=== PATIENT | male | born 2000 | race Caucasian/White ===

== ENCOUNTER 2022-05-16 20:25 | Emergency (ER) | payer OTHER, SELFPAY ==
[2022-05-16 20:56] VITALS: BP 100/64; PULSE 89; TEMP 36.8; O2SAT 96; BMI 24.3
--- NOTE | 2022-05-16 21:53 | ED_ITS ---
HPI - Psych General Chief Complaint: Psychiatric Problem/Disorder Stated Complaint: Confusion,Depression Time Seen by Provider: 05/16/22 20:56 History of Present Illness HPI Narrative: 21-year-old young man presenting to the emergency department with concern of not knowing what to do. He feels he needs ?upper level psychiatric facility? to try to break this cycle has become some weeks especially this week more depressed but particularly describes a deep sense of apathy. Does have a long psychiatric history and does receive regular counseling. Missed last week's therapy session which is done virtual. Last size psychiatrist virtually about a month ago possibly. Some medication adjustments decreasing Abilify seeing an SSRI. Does have diagnosis of depression anxiety he thinks some OCD tendencies also autism spectrum and history of intrusive thoughts. He has been having more of these intrusive thoughts about cracking his head against something or is falling out of bed and cracking his neck. He does not have thoughts of self-harm just suicide like this. Stressors include that he is pretty sure he is now failing of school. He is from [facility] male figure living with his mother would not be very forgiving apparently of mental health difficulties or beatrice ncial challenges that he might incur and so he has not been inclined to discuss what is going on with him. He has not brushed teeth in about a month but he has been using mouthwash. He describes himself as polyamorous; has 3 partners but recently couple of them stopped calling abruptly. He said he did not cry about it he was just flat somehow. He has felt like this in the past just not that th is bad. Has not use substances recently but on occasion does and alcohol. Sleep has been poor. He is a [employer] in [place] majoring in philosophy but maybe adding Psychiatry as well. Related Data Home Medications Medication Instructions Recorded Confirmed clonidine HCl 0.1 mg mg PO 05/16/22 tablet,extended release,12 hr escitalopram oxalate 20 mg tablet mg 05/16/22 estradiol 2 mg tablet mg 05/16/22 spironolactone 100 mg tablet mg 05/16/22 Allergies Allergy/AdvReac Type Severity Reaction Status Date / Time No Known Drug Allergies Allergy Verified 05/16/22 21:03 Review of Systems Status of ROS: Reports: 10 or more systems reviewed and unremarkable except as noted in History and below PFSH PFS Social History Smoking Status: Former smoker Do you use any of these nicotine containing products: None Second hand tobacco smoke exposure: No How often do you have a drink containing alcohol: 2-3 times a week How many standard drinks containing alcohol do you have on a typical day: 1 or 2 How often do you have six or more drinks on one occasion: Never AUDIT-C Alcohol total score: 3 Non-prescribed substance use: marijuana (any form) Exam Narrative: Exam Narrative: Pleasant. Talkative, easily conversant speaking fluidly. More blunted or flatter affect. Cranial nerves 2-12 intact. Mood is described as depressed. Affect appropriate. Breathing easily. In no particular distress. Has a big head of hair. No indication of self-harm on his person. Oropharynx is WNL. Actually does not look to be particularly unkempt. Cardiovascular with regular rate and rhythm Moving all extremities without difficulty. Well-perfused. Const: Vital Signs, click to edit/add: Vital Signs - 24 hr 05/16/22 20:56 05/17/22 02:26 Temperature 98.3 F 98.3 F Pulse Rate [Left P ulse Oximeter] 89 78 Respiratory Rate 18 Blood Pressure [Ri ght Upper Arm] 100/64 108/78 Pulse Oximetry 96 96 Oxygen Delivery Me thod Room Air Room Air Documenting provider has reviewed patient's vital signs: yes Course Course Hospital Course: I suggested it would be a good idea to stay ahead of these matters particularly those involving studies and talked to the [facility] sooner than later; that many other students go through these kinds of things as well. Reevaluation(s) Reevaluation #2: After talking and this time here says he feels better, like there is a path forward Consultations Consultation #1: Did ask for [facility] to consult. Merissa apparently is familiar with [facility]. She has managed to arrange for a day program locally which was helpful for [facility] in the past. Particularly helpful with organization. Vital Signs Vital signs: Initial Vital Signs Temperature 98.3 F 05/16/22 20:56 Temperature Source Temporal Artery Scan 05/16/22 20:56 Pulse Rate 89 05/16/22 20:56 Blood Pressure 100/64 05/16/22 20:56 Blood Pressure Mean 76 05/16/22 20:56 Blood Pressure Position Sitting 05/16/22 20:56 Pulse Oximetry 96 05/16/22 20:56 Oxygen Delivery Method 05/16/22 20:56 Vital Signs Temperature 98.3 F 05/16/22 20:56 Pulse Rate 89 05/16/22 20:56 Blood Pressure 100/64 05/16/22 20:56 Pulse Oximetry 96 05/16/22 20:56 Oxygen Delivery Method 05/16/22 20:56 Temperature 97.9 F 05/17/22 05:57 Pulse Rate 81 05/17/22 05:57 Respiratory Rate 18 05/17/22 05:57 Blood Pressure 110/80 05/17/22 05:57 Pulse Oximetry 96 05/17/22 05:56 Oxygen Delivery Method 05/17/22 05:56 MDM - Psych MDM Narrative Medical decision making narrative: Passive suicidal ideations seemed to be more consistent with intrusive thoughts. No active plan. Lab Data Attestation: I reviewed the patient's lab results. Labs: Lab Results 05/16/22 05/16/22 05/16/22 Range/Units 21:17 21:55 22:10 WBC 4.30 L (4.50-11.00) K/uL RBC 4.52 (4.30-5.90) m/uL Hgb 13.4 L (13.5-17.5) gm/dL Hct 39.9 (37.0-53.0) % MCV 88 (80-100) fL MCH 30 (26-34) pg MCHC 34 (32-36) gm/dL RDW Coeff of Jonathan 12.3 (11.5-15.5) % Plt Count 238 (140-440) K/uL Neut % (Auto) 53.5 (42.0-72.0) % Lymph % (Auto) 35.8 (20-44) % [place] % (Auto) 6.3 (0.0-11.0) % Eos % (Auto) 2.8 (0.0-7.0) % Baso % (Auto) 0.9 (0.0-3.0) % Neut # (Auto) 2.30 (1.7-7.0) K/uL Lymph # (Auto) 1.50 (0.90-2.90) K/uL [place] # (Auto) 0.30 (0.00-0.90) K/UL Eos # (Auto) 0.10 (0.00-0.50) K/uL Baso # (Auto) 0.00 (0.00-0.30) K/uL Abs Immat Gran (auto) 0.03 (0.00-0.30) K/uL Sodium (135-149) mmol/L Potassium (3.6-5.1) mmol/L Chloride (96-114) mmol/L Carbon Dioxide (20-32) mmol/L BUN (5-24) mg/dL Creatinine (0.5-1.5) mg/dL Estimated Creat Clear Estimated GFR ml/min Glucose (60-115) mg/dL Calcium (8.4-10.6) mg/dL Total Bilirubin (0.1-1.5) mg/dL Direct Bilirubin (0.0-0.5) mg/dL AST (12-35) U/L ALT (4-50) U/L Alkaline Phosphatase (40-150) U/L Total Protein (6.0-8.3) g/dL Albumin (3.3-5.0) g/dL Salicylates (1.0-10) mg/dL Urine Opiates Screen Negative (Negative) Ur Oxycodone Screen Negative (Negative) Urine Methadone Screen Negative (Negative) Ur Propoxyphene Screen Negative (Negative) Acetaminophen (10.0-30.0) ug/mL Ur Barbiturates Screen Negative (Negative) U Tricyclic Antidepress Negative (Negative) Ur Phencyclidine Scrn Negative (Negative) Ur Amphetamines Screen Negative (Negative) U Methamphetamines Scrn Negative (Negative) U Benzodiazepines Scrn Negative (Negative) Urine Cocaine Screen Negative (Negative) U Marijuana (THC) Screen Negative (Negative) Ur Drug Screen Comment See Note Ethyl Alcohol (0.01-0.03) % SARS-CoV-2 (PCR) Negative SARS-CoV-2 (Negative) 05/16/22 Range/Units 22:10 WBC (4.50-11.00) K/uL RBC (4.30-5.90) m/uL Hgb (13.5-17.5) gm/dL Hct (37.0-53.0) % MCV (80-100) fL MCH (26-34) pg MCHC (32-36) gm/dL RDW Coeff of Jonathan (11.5-15.5) % Plt Count (140-440) K/uL Neut % (Auto) (42.0-72.0) % Lymph % (Auto) (20-44) % [place] % (Auto) (0.0-11.0) % Eos % (Auto) (0.0-7.0) % Baso % (Auto) (0.0-3.0) % Neut # (Auto) (1.7-7.0) K/uL Lymph # (Auto) (0.90-2.90) K/uL [place] # (Auto) (0.00-0.90) K/UL Eos # (Auto) (0.00-0.50) K/uL Baso # (Auto) (0.00-0.30) K/uL Abs Immat Gran (auto) (0.00-0.30) K/uL Sodium 136 (135-149) mmol/L Potassium 3.9 (3.6-5.1) mmol/L Chloride 100 (96-114) mmol/L Carbon Dioxide 26 (20-32) mmol/L BUN 11 (5-24) mg/dL Creatinine 0.9 (0.5-1.5) mg/dL Estimated Creat Clear 126.67 Estimated GFR 125 ml/min Glucose 90 (60-115) mg/dL Calcium 9.5 (8.4-10.6) mg/dL Total Bilirubin 0.4 (0.1-1.5) mg/dL Direct Bilirubin 0.0 (0.0-0.5) mg/dL AST 21 (12-35) U/L ALT 14 (4-50) U/L Alkaline Phosphatase 65 (40-150) U/L Total Protein 8.0 (6.0-8.3) g/dL Albumin 5.1 H (3.3-5.0) g/dL Salicylates < 1.0 L (1.0-10) mg/dL Urine Opiates Screen (Negative) Ur Oxycodone Screen (Negative) Urine Methadone Screen (Negative) Ur Propoxyphene Screen (Negative) Acetaminophen < 10.0 L (10.0-30.0) ug/mL Ur Barbiturates Screen (Negative) U Tricyclic Antidepress (Negative) Ur Phencyclidine Scrn (Negative) Ur Amphetamines Screen (Negative) U Methamphetamines Scrn (Negative) U Benzodiazepines Scrn (Negative) Urine Cocaine Screen (Negative) U Marijuana (THC) Screen (Negative) Ur Drug Screen Comment Ethyl Alcohol < 0.01 L (0.01-0.03) % SARS-CoV-2 (PCR) (Negative) Discharge Plan Discharge Clinical Impression: Passive suicidal ideations Patient Disposition: Home w/ Parent or Adult Condition: Improved Additional Instructions: Please call to day program and ACT as planned on Wednesday. I would anticipate DEC contacting you as well. I am glad you were able to reach out to your ramon. If after counseling with crisis Line/team you still feel unsafe, return to the emergency department. See information on follow-up from Merissa. Prescriptions: No Action spironolactone 100 mg tablet Label Comments: TAKE ONE TABLET BY MOUTH TWICE A DAY estradiol 2 mg tablet Label Comments: TAKE 2 TABLETS (4 MG TOTAL) BY MOUTH 2 (TWO) TIMES A DAY. 4 MG IN THE MORNING AND 4 MG IN THE EVENING escitalopram oxalate 20 mg tablet Label Comments: TAKE 1 AND 1/2 TABLETS BY MOUTH DAILY clonidine HCl 0.1 mg tablet extended release 12 hr PO Label Comments: TAKE ONE TABLET BY MOUTH AT BEDTIME DAILY Follow Up/Referrals: Steph Levy MD [Primary Care Provider] - Stand Alone Forms: D[employer] system master Info Instructions
[2022-05-16 21:55] LABS: SARS PCR* Negative SARS-CoV-2 (Negative)
[2022-05-16 22:27] LABS: Amphetamine Screen Urine Negative (Negative); Barbiturate Screen Urine Negative (Negative); Benzodiazepines Screen Urine Negative (Negative); Cannabinoid Screen Urine Negative (Negative); Cocaine Screen Urine Negative (Negative); Methadone Screen Urine Negative (Negative); Methamphetamines Screen Urine Negative (Negative); Opiate Screen Urine Negative (Negative); Oxycodone Screen Urine Negative (Negative); Phencyclidine Screen Urine Negative (Negative); Tricyclic Antidepressant Urine Negative (Negative)
[2022-05-16 22:31] LABS: Albumin* 5.1 g/dL (3.3-5.0); Chloride* 100 mmol/L (96-114)
[2022-05-16 22:32] LABS: Potassium* 3.9 mmol/L (3.6-5.1); Sodium* 136 mmol/L (135-149)
[2022-05-16 22:34] LABS: Aspartate Amino Transferase* 21 U/L (12-35); Bilirubin Total* 0.4 mg/dL (0.1-1.5); Blood Urea Nitrogen* 11 mg/dL (5-24); Carbon Dioxide* 26 mmol/L (20-32); Creatinine* 0.9 mg/dL (0.5-1.5); Est. Creatinine Clearance* 126.67; Estimated Glomerular Filt Rate 125 ml/min
[2022-05-16 22:35] LABS: Alanine Aminotransferase* 14 U/L (4-50); Alkaline Phosphatase* 65 U/L (40-150); Calcium* 9.5 mg/dL (8.4-10.6); Glucose* 90 mg/dL (60-115)
[2022-05-16 22:38] LABS: Acetaminophen* < 10.0 ug/mL (10.0-30.0); Ethanol* < 0.01 % (0.01-0.03); Salicylate* < 1.0 mg/dL (1.0-10)
[2022-05-16 22:43] LABS: Basophils Percent Auto 0.9 % (0.0-3.0); Eosinophils Percent Auto 2.8 % (0.0-7.0); Hematocrit 39.9 % (37.0-53.0); Hemoglobin* 13.4 gm/dL (13.5-17.5); Immature Granulocytes Abs Auto 0.03 K/uL (0.00-0.30); Lymphocytes Percent Auto 35.8 % (20-44); Mean Corpuscular HGB Conc 34 gm/dL (32-36); Mean Corpuscular Hemoglobin 30 pg (26-34); Mean Corpuscular Volume 88 fL (80-100); Monocytes Percent Auto 6.3 % (0.0-11.0); Neutrophils Percent Auto 53.5 % (42.0-72.0); Platelet Count* 238 K/uL (140-440); RDW Coefficient of Variation % 12.3 % (11.5-15.5); Red Blood Count 4.52 m/uL (4.30-5.90)
[2022-05-16 22:53] LABS: Slide Review Reflex No
--- NOTE | 2022-05-16 23:01 | ED.NURSE ---
Per MD, pt can take his home nighttime meds. Medications given to pt to take as follows: Spironolactone 100mg, Escitalopram 30mg, Estradiol 4mg, Clonidine HCL ER 0.1mg.
[2022-05-17 02:26] VITALS: BP 108/78; PULSE 78; RESP 18; TEMP 36.8; O2SAT 96
[2022-05-17 05:56] VITALS: BP 110/80; PULSE 81; RESP 18; TEMP 36.6; O2SAT 96
[2022-05-17 05:57] VITALS: BP 110/80; PULSE 81; RESP 18; TEMP 36.6
== END 2022-05-17 06:07 | disposition home or self-care (01) ==
PROVIDERS: Emergency Provider Family Medicine; PCP Internal Medicine
DX: R45.851 Suicidal ideations (principal)
CPT/HCPCS: 36415; 80048; 80076; 80143; 80179; 80306; 82077; 85025; 87635; 99284